=== PATIENT | female | born 1945 | race Caucasian/White ===

== ENCOUNTER 2018-02-09 07:04 | Observation (INO) | payer MEDICARE ==
[~2018-02-09] VITALS: Ht 152.4 cm; Wt 52.3 kg
[2018-02-09] VITALS (10 sets, daily range): BP systolic 104–152; BP diastolic 62–71; PULSE 80–98; RESP 18–20; TEMP 96.1–97.9; O2SAT 92–98
[~2018-02-09 07:04] MED LIST: BACT2OIN TOP
[2018-02-09] MEDS ORDERED: SODIUM CHLORIDE 0.9% FLUSH 10 ML FLUSH IVF PRN (07:15)
[2018-02-09] MEDS ORDERED: methylPREDNISolone SOD SUCC 125 MG/2 ML VIAL IV PUSH ONE (07:15)
[2018-02-09] MEDS ORDERED: PAXI10TA8 PO (07:16)
[2018-02-09] MEDS: RESP: ALBUTEROL 2.5 MG/IPRATROPIUM 0.5 MG NEB (SCH) INH ×6 (07:19→19:22)
[2018-02-09 07:30] LABS: AUTOMATED NEUTROPHIL # 7.7 TH/MM3 (1.8-7.7); BASOPHIL % 0.4 % (0.0-2.0); EOSINOPHIL # 0.2 TH/MM3 (0-0.4); EOSINOPHIL % 1.6 % (0.0-4.0); HEMOGLOBIN 7.9 GM/DL (11.6-15.3); LYMPH % 17.9 % (9.0-44.0); MEAN CELL VOLUME 65.4 FL (80.0-100.0); MEAN CORPUSCULAR HEMOGLOBIN 20.8 PG (27.0-34.0); MEAN CORPUSCULAR HGB CONC 31.8 % (32.0-36.0); MEAN PLATELET VOLUME 8.5 FL (7.0-11.0); MONOCYTE # 1.1 TH/MM3 (0-0.9); NEUT % 70.1 % (16.0-70.0); PLATELET COUNT 455 TH/MM3 (150-450); RED BLOOD COUNT 3.82 MIL/MM3 (4.00-5.30); RED CELL DISTRIBUTION WIDTH 19.1 % (11.6-17.2)
[2018-02-09 07:31] LABS: CHLORIDE 102 MEQ/L (98-107); SODIUM (NA) 134 MEQ/L (136-145)
[2018-02-09 07:33] LABS: CALCIUM 9.1 MG/DL (8.5-10.1)
[2018-02-09 07:34] LABS: BICARBONATE 26.2 MEQ/L (21.0-32.0); BLOOD UREA NITROGEN 10 MG/DL (7-18); GLUCOSE,RANDOM 129 MG/DL (74-106)
[2018-02-09 07:37] LABS: GLOMERULAR FILTRATION RATE 82 ML/MIN (>89)
[2018-02-09 07:42] LABS: TROPONIN I LESS THAN 0.02 NG/ML (0.02-0.05)
--- NOTE | 2018-02-09 08:32 | RADRPT ---
EXAM DATE: 02/09/2018 8:26 AM EDT AGE/SEX: 72 years / Female INDICATIONS: Short of breath. CLINICAL DATA: This is the patient's initial encounter. Patient reports that signs and symptoms have been present for 1 day and indicates a pain score of 6/10. MEDICAL/SURGICAL HISTORY: None. None. COMPARISON: HPO, CHEST PA & LAT, 02/09/2018. POI, CT CHEST W/O CONTRAST, 09/26/2011. POI, XR CHES T PA AND LAT, 09/08/2011. . FINDINGS: The right fifth rib is not well visualized though appears expanded, and the patient does have a histo ry of a lytic expansile lesion of the right posterior fifth rib. Cardiomegaly and aortic calcificatio n. Calcified granuloma left upper lobe. L1 mild wedge compression deformity. Linear scarring at the l eft lung base. There is a pleural-based density at the left lung base extending 8.1 cm in cephalocaud al dimension. CONCLUSION: Left pleural-based density concerning for mass. Expansile lytic lesion right fifth posterior rib which is not well visualized. This has been describe d on previous reports. No obvious consolidation or effusion. Electronically signed by: Hector Boggs MD 02/09/2018 8:31 AM EDT
--- NOTE | 2018-02-09 08:51 | PD ---
HPI . Cough, chest pain, back pain, wound pain Chief Complaint: Chest Pain Time Seen by Provider: 07:12 Travel History International Travel<30 days: No Contact w/Intl Traveler<30days: No Traveled to known affect area: No History of Present Illness HPI Patient presents with the above complaints for the last couple of days. Her cough is productive of yellow sputum. She rates her pain at 10/10. The pain is improved with Advil and a heating pad. Her pain is exacerbated by coughing. She is a recently reformed smoker. She stopped smoking in November. PFSH Past Medical History Hx Anticoagulant Therapy: No Cardiovascular Problems: No Chemotherapy: No Cerebrovascular Accident: No Diabetes: No Diminished Hearing: No Respiratory: No ?: Not Past Surgical History Appendectomy: Yes Hysterectomy: Yes Other Surgery: Yes (BREAST REDUCTION) Social History Alcohol Use: No Tobacco Use: No Substance Use: No Allergies-Medications (Allergen,Severity, Reaction): Coded Allergies: No Known Allergies (Verified Adverse Reaction, Unknown, 02/09/18) Reported Meds & Prescriptions Reported Meds & Active Scripts Active Reported Paxil (Paroxetine HCl) 10 Mg Tab Unknown Dose PO DAILY Review of Systems Except as stated in HPI: all other systems reviewed are Neg General / Constitutional: No: Fever, Chills Cardiovascular: Positive: Chest Pain or Discomfort Respiratory: Positive: Cough, Shortness of Breath Musculoskeletal: Positive: Pain (Back pain) Physical Exam Narrative GENERAL: Awake and alert. SKIN: warm/dry. HEAD: Normocephalic. Atraumatic. EYES: Pupils equal and round. Extraocular movements are intact. ENT: Mucous membranes pink and moist. NECK: Supple. Full range of motion without pain.. CARDIOVASCULAR: Regular rate and rhythm. Heart sounds are normal. RESPIRATORY: No accessory muscle use. Diffuse coarse expiratory rhonchi. Breath sounds equal bilaterally. MUSCULOSKELETAL: No obvious deformities. Normal muscle tone. No peripheral edema. NEUROLOGICAL: Awake and alert. No obvious cranial nerve deficits. Motor grossly within normal limits. Normal speech. PSYCHIATRIC: Appropriate mood and affect; insight and judgment normal. Data Data Last Documented VS Vital Signs Date Time Temp Pulse Resp B/P (MAP) Pulse Ox O2 Delivery O2 Flow Rate FiO2 02/09/18 10:24 95 Nasal Cannula 2.00 02/09/18 09:06 84 02/09/18 08:48 18 02/09/18 07:25 97.9 Orders Orders Complete Blood Count With Diff (02/09/18 07:12) Basic Metabolic Panel (Bmp) (02/09/18 07:12) B-Type Natriuretic Peptide (02/09/18 07:12) Troponin I (02/09/18 07:12) Iv Access Insert/Monitor (02/09/18 07:12) Ecg Monitoring (02/09/18 07:12) Oximetry (02/09/18 07:12) Sodium Chloride 0.9% Flush (Ns Flush) (02/09/18 07:15) Methylprednisolone So Succ Inj (Solumedr (02/09/18 07:15) Albuterol-Ipratropium Neb (Duoneb Neb) (02/09/18 07:15) Chest, Pa & Lat (02/09/18 07:50) Electrocardiogram (02/09/18 07:11) Ct Thorax/ Chest W Iv Contrast (02/09/18 08:51) Albuterol-Ipratropium Neb (Duoneb Neb) (02/09/18 09:00) Potassium Chloride (Kcl) (02/09/18 09:00) Iohexol 350 Inj (Omnipaque 350 Inj) (02/09/18 09:29) Admit Order (Ed Use Only) (02/09/18 ) Vital Signs (Adult) Q4H (02/09/18 10:46) Diet Heart Healthy (02/09/18 Lunch) Activity Oob With Assistance (02/09/18 10:46) Notify Dr: Other (02/09/18 10:46) Labs Laboratory Tests Test 02/09/18 07:15 White Blood Count 11.0 TH/MM3 Red Blood Count 3.82 MIL/MM3 Hemoglobin 7.9 GM/DL Hematocrit 25.0 % Mean Corpuscular Volume 65.4 FL Mean Corpuscular Hemoglobin 20.8 PG Mean Corpuscular Hemoglobin Concent 31.8 % Red Cell Distribution Width 19.1 % Platelet Count 455 TH/MM3 Mean Platelet Volume 8.5 FL Neutrophils (%) (Auto) 70.1 % Lymphocytes (%) (Auto) 17.9 % Monocytes (%) (Auto) 10.0 % Eosinophils (%) (Auto) 1.6 % Basophils (%) (Auto) 0.4 % Neutrophils # (Auto) 7.7 TH/MM3 Lymphocytes # (Auto) 2.0 TH/MM3 Monocytes # (Auto) 1.1 TH/MM3 Eosinophils # (Auto) 0.2 TH/MM3 Basophils # (Auto) 0.0 TH/MM3 CBC Comment AUTO DIFF Differential Comment AUTO DIFF CONFIRMED Blood Urea Nitrogen 10 MG/DL Creatinine 0.70 MG/DL Random Glucose 129 MG/DL Calcium Level 9.1 MG/DL Sodium Level 134 MEQ/L Potassium Level 3.1 MEQ/L Chloride Level 102 MEQ/L Carbon Dioxide Level 26.2 MEQ/L Anion Gap 6 MEQ/L Estimat Glomerular Filtration Rate 82 ML/MIN Troponin I LESS THAN 0.02 NG/ML B-Type Natriuretic Peptide 64 PG/ML MDM Medical Decision Making Medical Screen Exam Complete: Yes Emergency Medical Condition: Yes Medical Record Reviewed: Yes (Unfortunately, she has no previous CBCs in our records.) Interpretation(s) EKG shows a normal sinus rhythm with no acute ischemic changes. Differential Diagnosis Differential diagnosis includes but is not limited to viral respiratory illness , bronchitis, pneumonia, allergies, CHF, asthma/COPD. Narrative Course This patient presented with a chief complaint of cough associated with chest pain, back pain and "lung pain. Onset was a couple days ago. It is associated with yellow sputum. Her physical exam is remarkable for diffuse coarse rhonchi. She was treated in the emergency department with Solu-Medrol and stacked nebs. She states that she feels better. CBC & BMP Diagram 02/09/18 07:15 Calcium Level 9.1 Troponin is normal. Patient reported no known history of anemia. Rectal exam was subsequently done and was Hemoccult negative. Potassium will be replaced orally. Because of her abnormal chest x-ray report, I will go ahead and do a CT of her chest. She will probably be okay to go home after that. She does have a doctor that she can follow-up with in the near future. [facility] Point of Care Internal Pos. & Neg. Controls: Passed Fecal Specimen Occult Blood: Negative Physician Communication Physician Communication Dr. Hinojosa Diagnosis Primary Impression: Bronchitis Additional Impressions: Lung mass Anemia Qualified Codes: D64.9 - Anemia, unspecified Admitting Information Admitting Physician Requests: Observation Condition: Stable Jaylin Gunderson MD Feb 09, 2018 08:51
[2018-02-09] MEDS ORDERED: POTASSIUM CHLORIDE 20 MEQ CONTROLLED RELEASE TAB PO ONE (09:00)
[2018-02-09] MEDS ORDERED: IOHEXOL 350 MG/ML 10 ML VIAL (for RAD DIAG) IVCONTRAST ONE ×2 (09:29→17:26)
--- NOTE | 2018-02-09 09:46 | RADRPT ---
EXAM DATE: 02/09/2018 9:32 AM EDT AGE/SEX: 72 years / Female INDICATIONS: Difficulty breathing. Abnormal chest x-ray. CLINICAL DATA: This is the patient's initial encounter. Patient reports that signs and symptoms have been present for 2 days and indicates a pain score of 0/10. MEDICAL/SURGICAL HISTORY: None. Appendectomy. Hysterectomy. Breast reduction. RADIATION DOSE: 9.91 CTDI (mGy) COMPARISON: HPO, CHEST PA & LAT, 02/09/2018. POI, CT CHEST W/O CONTRAST, 09/26/2011. . TECHNIQUE: Multiple contiguous axial images were obtained through the chest during bolus infusion of 65 ml Omnipaque 350 (iohexol) nonionic water-soluble contrast as a single exam dose. Images were obtained in suspended respiration using multiple row detector helical technique. Using automated exp osure control and adjustment of the mA and/or kV according to patient size, radiation dose was kept a s low as reasonably achievable to obtain optimal diagnostic quality images. FINDINGS: There is a calcified granuloma in the superior segment of the left lower lobe. There are atelectatic changes at the lung bases. There is no consolidation. Atherosclerotic calcifications of the aorta and coronary arteries are identified. Numerous calcified granulomas in the spleen are present. The exami nation demonstrates an expansile destructive appearance of the fifth posterior rib extending over sev eral centimeters. There are also expansile lucent lesions involving the left fifth, sixth and eighth ribs corresponding to the findings on the chest x-ray. There is a fracture of the right 10th posterio r rib with several small lucent lesions seen involving the right 10th posterior rib, as well as a del ent lesion of the right ninth and eighth posterior ribs. There is a lucent lesion of the left fourth and 10th posterior rib. There is a lucent lesion of the sternum and scattered lucent lesions within t he spine. There is a compression deformity identified of the fifth thoracic vertebral body as well as a moderate compression fracture deformity of the T12 vertebral body, which appear pathologic. Tiny c alcified granuloma right upper lobe. CONCLUSION: 1. Calcified granuloma left lower lobe, as well as a tiny calcified granuloma in the right upper lob e. 2. There are numerous lytic lesions seen throughout the visualized bones with a pathologic fracture of the right 10th posterior rib, as well as 2 compression fractures in the spine. These are nonacute in appearance. 3. The pleural-based densities noted on the recent chest x-ray corresponds to expansile rib lesions. Electronically signed by: Hector Boggs MD 02/09/2018 9:45 AM EDT
[2018-02-09] MEDS ORDERED: SODIUM CHLORIDE 0.9% FLUSH 10 ML FLUSH IV FLUSH PRN (10:45)
[2018-02-09] MEDS ORDERED: RESP: ALBUTEROL 2.5 MG/3 ML NEB (PRN) INH (10:45)
[2018-02-09] MEDS ORDERED: ENOXAPARIN SODIUM 40 MG/0.4 ML SYRINGE SQ SCH (12:00)
[2018-02-09] MEDS: AZITHROMYCIN 250 MG TAB PO SCH (12:11)
--- NOTE | 2018-02-09 13:24 | HHI.HP ---
[facility] Service [facility] Primary Care Physician Arlette Núñez MD Admission Diagnosis bronchospasm, anemia, lung mass Diagnoses: (1) Bronchitis Diagnosis: Principal (2) Lung mass Diagnosis: Principal (3) Anemia Diagnosis: Principal Chief Complaint: Shortness of breath, cough Travel History International Travel<30 Days: No Contact w/Intl Traveler <30 Da: No Traveled to Known Affected Are: No History of Present Illness Written by Neptali Kearns, acting as scribe for Dr. Hinojosa on 02/09/18 at 13: 17. 72-year-old female with known significant chronic medical illnesses other than osteoporosis, possible lower extremity neuropathy who presented to the hospital because of cough, congestion. Patient states that her is actually admitted to the hospital and has pneumonia. She has been around him recently who has been sick. She states that she has been experiencing a significant cough with yellow phlegm production and whenever she coughs it feels like a knife stabbing pain in her ribs and back. Denies any fever, chills , nausea, vomiting she has had shortness of breath and dyspnea on exertion. He states that whenever she coughs she does develop a pain in her chest where she puts a pad on it does improve. Patient had workup done emergency department and actually found unfortunate other abnormalities to include multiple lytic lesions throughout her bones thorax, expansile rib lesions, lung mass. ER physician indicated that she gave the patient nebulizer treatments and oxygen and the patient did feel improved, however when she removed the oxygen and her O2 saturations dropped so 89% and because of that reason ER physician recommended patient be admitted to the hospital for further evaluation and management. Upon further questioning of the patient appears that she never had a mammogram, she refuses it because it hurts too bad. Her colonoscopy was done by Dr. Kilo tello 2 years ago and was normal except for polyps. Her prior medical doctor is Dr. Núñez, she denies any previous history of anemia, and she states that she does not know if she has any weight loss. She states that food just does not taste good to her so she sometimes goes without eating frequently. Record reviewed and does appear that patient did have stable weight up until 2013 when it appears as if she started losing weight from 63 kg down to 52 kg. Patient denies any previous diagnosis of cancer. She does have positive family history with her father having cancer of his entire body. She states it started in his groin and then spread throughout his entire body and even into his brain. Review of Systems Constitutional: COMPLAINS OF: Weight loss, Change in appetite Respiratory: COMPLAINS OF: Cough, Sputum production, Shortness of breath Cardiovascular: COMPLAINS OF: Chest pain, Dyspnea on Exertion Musculoskeletal: COMPLAINS OF: Joint pain, Back pain Except as stated in HPI: all other systems reviewed are Neg Past Family Social History Past Medical History Osteoporosis Neuropathy Past Surgical History Appendectomy Hysterectomy Breast reduction Reported Medications Reported Meds & Active Scripts Active Reported Paxil (Paroxetine HCl) 10 Mg Tab Unknown Dose PO DAILY Allergies: Coded Allergies: No Known Allergies (Verified Allergy, Unknown, 02/09/18) Family History Reviewed is significant for father with widespread cancer. Mother at age 51 from alcohol poisoning Social History Patient states that she quit smoking in October prior to that she smoked 1 pack of cigarettes a day since she was a teenager. Denies any alcohol or illicit drug Physical Exam Vital Signs Vital Signs Date Time Temp Pulse Resp B/P (MAP) Pulse Ox O2 Delivery O2 Flow Rate FiO2 02/09/18 11:24 92 18 93 Nasal Cannula 2.00 02/09/18 10:24 95 Nasal Cannula 2.00 02/09/18 09:06 84 96 Nasal Cannula 2.00 02/09/18 08:57 Nasal Cannula 2.00 02/09/18 08:48 95 18 104/62 (76) 93 Room Air 02/09/18 07:25 97.9 80 18 118/71 (87) 94 02/09/18 07:15 18 94 Room Air 02/09/18 07:12 18 94 Room Air Physical Exam GENERAL: Well-developed, well-nourished, in no acute distress. alert and orientated HEENT: Extraocular muscles are intact. NECK: Trachea midline no deviation. No JVD, no bruits are appreciated CARDIAC: Regular rhythm, regular rate. 1-2/6 murmurs gallops . LUNGS: exp Wheeze noted bilateral lower lung bassett. Patient appears to be in obvious pain whenever she coughs ABDOMEN: Soft, nontender. Nondistended. Bowel sounds heard in all 4 quadrants. Negative rebound, negative guarding EXTREMITIES: No edema, pulses are equal bilaterally. NEUROLOGY: Mood and affect appear appropriate. Cranial nerves II through XII grossly intact. moves all ext SPINE: No palpable tenderness noted over thoracic and lumbar spine. Laboratory Laboratory Tests Test 02/09/18 07:15 White Blood Count 11.0 Red Blood Count 3.82 Hemoglobin 7.9 Hematocrit 25.0 Mean Corpuscular Volume 65.4 Mean Corpuscular Hemoglobin 20.8 Mean Corpuscular Hemoglobin Concent 31.8 Red Cell Distribution Width 19.1 Platelet Count 455 Mean Platelet Volume 8.5 Neutrophils (%) (Auto) 70.1 Lymphocytes (%) (Auto) 17.9 Monocytes (%) (Auto) 10.0 Eosinophils (%) (Auto) 1.6 Basophils (%) (Auto) 0.4 Neutrophils # (Auto) 7.7 Lymphocytes # (Auto) 2.0 Monocytes # (Auto) 1.1 Eosinophils # (Auto) 0.2 Basophils # (Auto) 0.0 CBC Comment AUTO DIFF Differential Comment AUTO DIFF CONFIRMED Blood Urea Nitrogen 10 Creatinine 0.70 Random Glucose 129 Calcium Level 9.1 Sodium Level 134 Potassium Level 3.1 Chloride Level 102 Carbon Dioxide Level 26.2 Anion Gap 6 Estimat Glomerular Filtration Rate 82 Troponin I LESS THAN 0.02 B-Type Natriuretic Peptide 64 Result Diagram: 02/09/18 0715 02/09/18 0715 Imaging Last Impressions Chest CT 02/09/18 0851 Signed Impressions: CONCLUSION: 1. Calcified granuloma left lower lobe, as well as a tiny calcified granuloma in the right upper lobe. 2. There are numerous lytic lesions seen throughout the visualized bones with a pathologic fracture of the right 10th posterior rib, as well as 2 compression fractures in the spine. These are nonacute in appearance. 3. The pleural-based densities noted on the recent chest x-ray corresponds to expansile rib lesions. Chest X-Ray 02/09/18 0750 Signed Impressions: CONCLUSION: Left pleural-based density concerning for mass. Expansile lytic lesion right fifth posterior rib which is not well visualized. This has been described on previous reports. No obvious consolidation or effusion. Caprini VTE Risk Assessment Caprini VTE Risk Assessment: Mod/High Risk (score >= 2) Caprini Risk Assessment Model Point Value = 1 Point Value = 2 Point Value = 3 Point Value = 5 Age 41-60 Minor surgery BMI > 25 kg/m2 Swollen legs Varicose veins or History of unexplained or recurrent spontaneous Oral contraceptives or hormone replacement Sepsis (< 1 month) Serious lung disease, including pneumonia (< 1 month) Abnormal pulmonary function Acute myocardial infarction Congestive heart failure (< 1 month) History of inflammatory bowel disease Medical patient at bed rest Age 61-74 Arthroscopic surgery Major open surgery (> 45 min) Laparoscopic surgery (> 45 min) Malignancy Confined to bed (> 72 hours) Immobilizing plaster cast Central venous access Age >= 75 History of VTE Family history of VTE Factor V Leiden Prothrombin [id number] Lupus anticoagulant Anticardiolipin antibodies Elevated serum homocysteine Heparin-induced thrombocytopenia Other congenital or acquired thrombophilia Stroke (< 1 month) Elective arthroplasty Hip, pelvis, or leg fracture Acute spinal cord injury (< 1 month) Prophylaxis Regimen Total Risk Factor Score Risk Level Prophylaxis Regimen 0-1 Low Early ambulation 2 Moderate Order ONE of the following: *Sequential Compression Device (SCD) *Heparin 5000 units SQ BID 3-4 Higher Order ONE of the following medications: *Heparin 5000 units SQ TID *Enoxaparin/Lovenox 40 mg SQ daily (WT < 150 kg, CrCl > 30 mL/min) *Enoxaparin/Lovenox 30 mg SQ daily (WT < 150 kg, CrCl > 10-29 mL/min) *Enoxaparin/Lovenox 30 mg SQ BID (WT < 150 kg, CrCl > 30 mL/min) AND/OR *Sequential Compression Device (SCD) 5 or more Highest Order ONE of the following medications: *Heparin 5000 units SQ TID (Preferred with Epidurals) *Enoxaparin/Lovenox 40 mg SQ daily (WT < 150 kg, CrCl > 30 mL/min) *Enoxaparin/Lovenox 30 mg SQ daily (WT < 150 kg, CrCl > 10-29 mL/min) *Enoxaparin/Lovenox 30 mg SQ BID (WT < 150 kg, CrCl > 30 mL/min) AND *Sequential Compression Device (SCD) Assessment and Plan Assessment and Plan Shortness of breath, wheeze, hypoxia -Given the patient's history of long-term tobacco use possible chronic obstructive pulmonary disease exacerbation, possible bronchitis -Continue O2 supplementation maintain O2 saturations 89-92% -Duo nebs every 6 hours while awake and every 2 hours as needed -Solu-Medrol 60 mg IV every 6 hours -Robitussin-AC for cough and expectorant -Obtain sputum culture Lytic lesions/expansive rib lesions noted on CT chest. Pain meds as needed check bone survey SPEP ordered. Lung/pleural mass, -Need to rule out metastatic disease breast versus multiple myeloma -Obtain CT of the abdomen and pelvis -Obtain tumor markers -Consult oncology for recommendations -obtain CT guided biopsy of lesion Anemia -Obtain anemia studies -Monitor H&H and anticipate transfusion of below 7.0 -Obtain serum protein electrophoresis DVT prevention -Lovenox -Sequential compression devices This note was transcribed by beti Kearns. I, Dr. Janeth Hinojosa personally performed the history, physical exam, and medical decision making; and confirmed the accuracy of the information in the transcribed note. Authenticated by Dr. Janeth Hinojosa on 02/09/18 at 13:17. Code Status Full code Problem Qualifiers (1) Anemia: Qualified Codes: D64.9 - Anemia, unspecified Neptali Kearns Feb 09, 2018 13:24 Janeth Hinojosa MD Feb 09, 2018 13:25
[2018-02-09] MEDS ORDERED: ACETAMINOPHEN/HYDROcodone 325 MG/5 MG TAB PO PRN (13:45)
[2018-02-09] MEDS: methylPREDNISolone SOD SUCC 125 MG/2 ML VIAL IV PUSH SCH ×2 (13:48→21:20)
[2018-02-09] MEDS: guaiFENesin/CODEINE SYRUP 200 MG/20 MG/10 ML CUP PO PRN ×2 (13:48→21:34)
[2018-02-09] MEDS ORDERED: DIATRIZOATE MEGLUM/DIATRIZOATE SOD 9 ML CUP PO ONE ×2 (14:00→14:15)
[2018-02-09 14:20] LABS: RETIC # 119.9 MIL/L (20.0-150.0); RETIC % 3.3 % (0.4-3.0)
[2018-02-09 14:31] LABS: % SATURATION IRON PROFILE 4.4 % (20-50); IRON (FE) 19 MCG/DL (50-170); TOTAL IRON BINDING CAPACITY 434 MCG/DL (250-450)
[2018-02-09] MEDS: ACETAMINOPHEN/HYDROcodone 325 MG/7.5 MG TAB PO PRN ×2 (14:41→21:18)
--- NOTE | 2018-02-09 14:45 | EKG ---
Date Performed: 02/09/2018 Time Performed: 07:11:02 PTAGE: 72 years EKG: Sinus rhythm NONSPECIFIC ST & T-WAVE ABNORMALITY BORDERLINE ECG NO PREVIOUS TRACING DOCTOR: Herman Guadarrama Interpretating Date/Time 02/09/2018 14:44:13
[2018-02-09 14:56] LABS: FERRITIN 15 NG/ML (8-252); FOLATE 11.1 NG/ML (3.1-17.5)
[2018-02-09] MEDS ORDERED: RESP: ALBUTEROL 2.5 MG/IPRATROPIUM 0.5 MG NEB (SCH) INH (16:00)
--- NOTE | 2018-02-09 18:07 | RADRPT ---
EXAM DATE: 02/09/2018 5:25 PM EDT AGE/SEX: 72 years / Female INDICATIONS: Evaluate for metastatic disease. Abnormal CT Thorax. CLINICAL DATA: This is the patient's subsequent encounter. Patient reports that signs and symptoms h ave been present for 1 day and indicates a pain score of 0/10. MEDICAL/SURGICAL HISTORY: None. Appendectomy. Hysterectomy. ORAL CONTRAST: Prescribed oral contrast ingested. RADIATION DOSE: 8.40 CTDI (mGy) COMPARISON: No prior exams available for comparison. TECHNIQUE: Multiple contiguous axial images were obtained through the abdomen and pelvis following b olus infusion of 75 ml Omnipaque 350 (iohexol) nonionic water-soluble contrast as a single exam dos e. Prescribed oral contrast ingested. Using automated exposure control and adjustment of the mA and/ or kV according to patient size, the radiation dose was kept as low as reasonably achievable to obtai n optimal diagnostic quality images. FINDINGS: Lower Lungs: The visualized lower lungs are clear. Liver: The liver has a homogeneous density without space-occupying lesion. There is no dilation of th e biliary tree. There are 2 calcified gallstones in the dependent gallbladder measuring up to 7 mm in size. Spleen: Homogeneous density without enlargement. Multiple round calcifications scattered throughout the spleen. Pancreas: Unremarkable without mass or calcification. Kidneys: Normal in size and shape. No evidence of mass or hydronephrosis. There are 2 oval low-densi ty lesions in the lower pole left kidney measuring up to 7 mm in size suggestive of cortical cysts. Adrenal Glands: Abnormal appearance to the right adrenal gland with 2 masses, one near the crux dianne suring 3.6 x 2.4 cm and the other farther posterior, possibly arising from the medial limb measuring 2.9 x 1.9 cm. These lesions are oval and heterogeneous in density with mean CT density 62 Hounsfield units. Both lesions contain a central rounded calcification. The left adrenal gland is normal in appe arance. Aorta: The aorta and proximal iliac vessels are grossly unremarkable without aneurysmal dilation. Bowel/Mesentery: The bowel loops are grossly unremarkable. The cecum and sigmoid colon have a normal configuration. Abdominal Wall: Intact. Retroperitoneum: No evidence of adenopathy in the retrocrural, para-aortic, or deep pelvic regions. Bladder: Contours are smooth. Reproductive Organs: No abnormal masses or calcifications seen. Inguinal: The inguinal region is unremarkable without evidence of adenopathy. Bony Structures: CT thorax and demonstrated multiple expansile lytic lesions of ribs. There is a fra cture of the posterior right 10th rib. The abdominal pelvic CT demonstrates an expansile lytic lesion involving the inferior pubic ramus on the left side extending to the initial tuberosity, a focal lyt ic lesion in the right posterior femoral head measuring 2.5 cm, multiple small lytic lesions in the s upra-acetabular region bilaterally, focal lytic lesion left medial iliac bone measuring 2.5 cm, ill-d efined lytic lesion in the anterior L4 vertebral body, diffuse sclerosis of the T12 vertebral body wi th 70% compression deformity, irregular margin lytic lesion in the left T11 vertebral body measuring 1.4 cm, and a lytic lesion involving most of the T9 body. CONCLUSION: 1. Numerous lytic lesions without internal matrix involving pelvis, right femoral head, multiple katharine tebral bodies. The osseous lesions seen on this scan are similar to the osseous lesions seen on the C T thorax. 2. There are 2 oval low-density masses in the right adrenal gland measuring up to 3.6 cm. 3. No renal mass seen. 4. Cholelithiasis. Electronically signed by: Dirk Gross MD 02/09/2018 6:06 PM EDT
[2018-02-09] MEDS ORDERED: IRON SUCROSE INJ 100 MG in SODIUM CHLORIDE 0.9% INJ 100 ML IV ONE (18:45)
[2018-02-09] MEDS ORDERED: CYANOCOBALAMIN 1000 MCG/ML VIAL IM ONE (18:45)
--- NOTE | 2018-02-09 19:24 | MB ---
cc: Kerri Mcfarlane MD, Ruby Anne E MD Leger,Janeth KRISHNA DATE: 02/09/2018 REFERRING PHYSICIAN: Dr. Janeth Hinojosa. CHIEF COMPLAINT: Dr. Hinojosa requests a consultation for Mrs. Rosario regarding numerous lytic lesions throughout the bones and pathologic fracture. HISTORY OF PRESENT ILLNESS: Mrs. Rosario is a 72-year-old woman with no significant past history. She describes having a cough and pain in the back associated with her cough. She describes her symptoms began after lifting up her 's truck tail gate. She developed significant pain in her back. She describes that she does not like food. She has lost a significant amount of weight. She weighs about 113 pounds now. She weighed 165 pounds at her most. She describes the weight loss gradual over several years. She describes some pain in her upper back. It radiates to both sides. She denies any pelvic like pain. She has minimized any symptoms. Denies any fevers, chills or night sweats. The rest of her review of systems is negative. PAST MEDICAL HISTORY: None. PAST SURGICAL HISTORY: Appendectomy, hysterectomy, breast reduction surgery. SOCIAL HISTORY: She quit smoking in November. She denies any tobacco or illicit drug use. FAMILY HISTORY: Significant for father who of widespread metastatic cancer including MACHINE BURRER disease. ALLERGIES: NO KNOWN DRUG ALLERGIES. MEDICATIONS: From home Paxil. PHYSICAL EXAMINATION: VITAL SIGNS: Temperature 97.4, heart rate 98, respiratory rate 20, blood pressure 152/69, saturation 96%. GENERAL: Mrs. Rosario is a well-developed, pleasant, elderly woman in no acute distress. HEENT: Pupils are round and reactive. She seems to have a little asymmetry when she blinks. Left eyelid is slower than the right. NECK: Supple. No axillary adenopathy. LUNGS: Clear to auscultation. CARDIOVASCULAR: Reveals mild tachycardia. ABDOMEN: Benign. No organomegaly. LOWER EXTREMITIES: No edema. Good pulses. NEUROLOGIC: Nonfocal. She has a mild kyphotic posture. LABORATORY DATA: Significant for a microcytic anemia with hemoglobin 7.9, MCV 65.4, platelet count 455. Retic count is elevated. Haptoglobin is high. Iron study consistent with iron deficiency with a ferritin of 15. Serum B12 is less than 60. BUN and creatinine are normal. Sodium decreased at 134, potassium 3.1. IMAGING STUDIES: Radiographic evaluation including CT scan of the abdomen showed numerous lytic lesions, internal matrix involving the pelvis, the right femoral head, multiple vertebral bodies. There are 2 masses in the right adrenal gland. CT scan of the chest shows the same numerous lytic lesions throughout the visual bones. There is a pleural based density on the right side in back of the right scapula. ASSESSMENT AND PLAN: Mrs. Rosario is a 72-year-old woman with no significant past history. She has had progressive weight loss, decrease in appetite, evidence of iron and B12 deficiency. We discussed the findings on CT scan of chest, abdomen and pelvis. We suspect underlying malignancy with the lytic lesions and a pleural based mass in the right lung. We discussed a diagnostic biopsy would be important if she is interested in treatment for her cancer. Primary for underlying cancer is still considered lung in light of her history of smoking. Other possibilities are breast and multiple myeloma, in light of the lytic nature of her breast cancer. Consider gastrointestinal source. She has evidence for a B12 deficiency and iron deficiency. She denies any bleeding. We discussed empiric replacement of iron and B12 to alleviate her symptoms. In the end, she declined biopsy. She states that she does not want to know. She believes that whatever lesions are seen on the scans are not bothering her. We discussed real possibility that these lesions would eventually produce symptoms and thus bother her. I recommend highly that if she decides against pursuing a diagnostic biopsy or treatment to consider subscribing to hospice care. She was willing to entertain a consultation with hospice to find out more information. In the meantime, she was advised to consider the option of a CT-guided biopsy for diagnosis along with her son and her . Apparently, her is in the hospital and she does not believe that he is going to get better. Emotional support is provided. We will continue to follow. I will support patient in her decision. She is alert and making decisions for herself. She is expressing her preference. Her questions were answered to her satisfaction. MD YOMI Marcano/ , 06:41 PM , 07:23 PM
--- NOTE | 2018-02-09 21:08 | RADRPT ---
EXAM DATE: 02/09/2018 8:58 PM EDT AGE/SEX: 72 years / Female INDICATIONS: Possible multiple myeloma. CLINICAL DATA: This is the patient's initial encounter. Patient reports that signs and symptoms have been present for 1 week and indicates a pain score of 7/10. MEDICAL/SURGICAL HISTORY: None. None. COMPARISON: No prior exams available for comparison. FINDINGS: Numerous lytic calvarial lesions noted measuring up to 3.2 cm in diameter. Numerous subtle lucencies noted throughout the spine. Moderate wedge pathologic compression fracture at T12 and T5. There is an expansile lytic lesion of the right posterior fifth rib and multiple additional bilateral lytic lesi ons in the ribs. No compression deformity identified in the lumbar spine. There are subtle lytic lesi ons in the pelvis and proximal right femur. These are better visualized on recent CT. Multiple lytic lesions noted in the femora bilaterally with endosteal scalloping. Subtle small lesions noted bilater ally in the tibia and fibula and also in both upper extremities. CONCLUSION: Numerous lytic lesions throughout the axial and appendicular skeleton as well as the calvarium most c haracteristic of multiple myeloma or other metastatic disease. Pathologic compression deformities at T5 and T12. Electronically signed by: Eric Barraza MD 02/09/2018 9:06 PM EDT
[2018-02-09 21:23] LABS: CARCINOEMBRYONIC ANTIGEN 1.5 NG/ML (0.2-5.0)
[2018-02-09 22:03] LABS: CA 19-9 4.7 U/ML (0.0-35.0)
[2018-02-09 22:13] LABS: CA 15-3 20.4 U/ML (0.0-32.4)
[2018-02-09] MEDS: SODIUM CHLORIDE 0.9% FLUSH 10 ML FLUSH IV FLUSH SCH (22:41)
[2018-02-09] MEDS: BUDESONIDE-FORMOTEROL 160/4.5 MCG INHALER INH SCH (22:41)
[2018-02-10] MEDS: methylPREDNISolone SOD SUCC 125 MG/2 ML VIAL IV PUSH SCH ×3 (02:28→14:20)
[2018-02-10] MEDS: ACETAMINOPHEN/HYDROcodone 325 MG/7.5 MG TAB PO PRN ×3 (05:54→16:04)
[2018-02-10 07:00] LABS: AUTOMATED NEUTROPHIL # 9.9 TH/MM3 (1.8-7.7); BASOPHIL % 0.2 % (0.0-2.0); HEMATOCRIT 22.8 % (35.0-46.0); HEMOGLOBIN 7.3 GM/DL (11.6-15.3); LYMPH % 6.7 % (9.0-44.0); LYMPHOCYTE # 0.7 TH/MM3 (1.0-4.8); MEAN CELL VOLUME 65.8 FL (80.0-100.0); MEAN CORPUSCULAR HEMOGLOBIN 21.1 PG (27.0-34.0); MEAN CORPUSCULAR HGB CONC 32.1 % (32.0-36.0); MEAN PLATELET VOLUME 8.1 FL (7.0-11.0); MONO % 1.1 % (0.0-8.0); MONOCYTE # 0.1 TH/MM3 (0-0.9); PLATELET COUNT 322 TH/MM3 (150-450); RED BLOOD COUNT 3.47 MIL/MM3 (4.00-5.30); RED CELL DISTRIBUTION WIDTH 19.4 % (11.6-17.2); WHITE BLOOD COUNT 10.7 TH/MM3 (4.0-11.0)
[2018-02-10 07:24] VITALS: BP 148/64; PULSE 79; RESP 20; TEMP 96.4; O2SAT 94
[2018-02-10] MEDS: RESP: ALBUTEROL 2.5 MG/IPRATROPIUM 0.5 MG NEB (SCH) INH ×2 (07:24→14:21)
[2018-02-10 07:25] VITALS: O2SAT 85
[2018-02-10 07:38] VITALS: O2SAT 94
[2018-02-10 07:46] LABS: CREATININE 0.64 MG/DL (0.50-1.00)
[2018-02-10 07:47] LABS: BICARBONATE 27.6 MEQ/L (21.0-32.0)
[2018-02-10] MEDS: CALCIUM CARBONATE 500 MG CHEWABLE TAB CHEW PRN ×2 (08:05→16:04)
[2018-02-10] MEDS: BUDESONIDE-FORMOTEROL 160/4.5 MCG INHALER INH SCH (08:05)
[2018-02-10] MEDS ORDERED: NEBULIZER1 MI1 (08:24)
[2018-02-10] MEDS ORDERED: PILL SPLITTER OTHER PRN (09:00)
[2018-02-10] MEDS ORDERED: OXYGENDME NAS.CANULA (09:00)
[2018-02-10] MEDS ORDERED: PANTOPRAZOLE SOD 40 MG DELAYED RELEASE TAB PO SCH (09:00)
[2018-02-10] MEDS ORDERED: amLODIPine BESYLATE 5 MG TAB PO SCH (09:00)
--- NOTE | 2018-02-10 09:01 | HHI.DCPOC ---
Discharge Care Plan Diagnosis: (1) Lytic bone lesions on xray (2) COPD (chronic obstructive pulmonary disease) (3) Bronchitis (4) Anemia Goals to Promote Your Health * To prevent worsening of your condition and complications * To maintain your health at the optimal level Directions to Meet Your Goals Take your medications as prescribed Follow your dietary instruction Follow activity as directed Keep your appointments as scheduled Take your immunizations and boosters as scheduled If your symptoms worsen call your PCP, if no PCP go to Urgent Care Center or Emergency Room Smoking is Dangerous to Your Health. Avoid second hand smoke Call the 24-hour hour crisis hotline for domestic abuse at Nept[facility] Kearns Feb 10, 2018 09:01
[2018-02-10] MEDS: SODIUM CHLORIDE 0.9% FLUSH 10 ML FLUSH IV FLUSH SCH (09:41)
[2018-02-10] MEDS: guaiFENesin/CODEINE SYRUP 200 MG/20 MG/10 ML CUP PO PRN (09:44)
[2018-02-10] MEDS: AZITHROMYCIN 250 MG TAB PO SCH (10:24)
[2018-02-10 11:03] VITALS: BP 129/60; PULSE 89; RESP 20; TEMP 96.7; O2SAT 93
--- NOTE | 2018-02-10 12:58 | HHI.PR ---
Subjective Remarks Pt states she feels better regarding her cough and SOB. Feels that she is ready for discharged. When asked about why she didn't want any work up to find out what the lesions on her bones are, she replies that she is a "wimp" and is afraid of needles. I did explain to her that IR would definitely give her anesthesia and she wouldn't feel much during the procedure. She states that she would think about it. She will be meeting w hospice in the event she opts to not do anything. I did also explain to her that in the event she changes her mind, she can f/u w PCP/onc as an outpatient for further eval. She states she is still coughing but has pain in her ribs. Her SOB is improved however. no nausea or vomiting Objective Vitals Vital Signs Date Time Temp Pulse Resp B/P (MAP) Pulse Ox O2 Delivery O2 Flow Rate FiO2 02/10/18 11:03 96.7 89 20 129/60 (83) 93 02/10/18 07:38 94 Nasal Cannula 2.00 02/10/18 07:25 85 21 02/10/18 07:24 96.4 79 20 148/64 (92) 94 02/09/18 23:53 97.3 95 18 149/65 (93) 92 02/09/18 20:00 96.1 86 18 149/69 (95) 94 02/09/18 19:24 98 Nasal Cannula 2.00 02/09/18 16:00 18 02/09/18 15:01 97.4 98 20 152/69 (96) 96 I/O 02/09/18 02/09/18 02/09/18 02/10/18 02/10/18 02/10/18 07:00 15:00 23:00 07:00 15:00 23:00 Intake Total 840 ml 240 ml Balance 840 ml 240 ml Intake Oral 840 ml 240 ml # Voids 2 2 Result Diagram: 02/10/18 0535 02/10/18 0535 Imaging Last Impressions Chest CT 02/09/18 0808 Signed Impressions: CONCLUSION: 1. Calcified granuloma left lower lobe, as well as a tiny calcified granuloma in the right upper lobe. 2. There are numerous lytic lesions seen throughout the visualized bones with a pathologic fracture of the right 10th posterior rib, as well as 2 compression fractures in the spine. These are nonacute in appearance. 3. The pleural-based densities noted on the recent chest x-ray corresponds to expansile rib lesions. Chest X-Ray 02/09/18 0750 Signed Impressions: CONCLUSION: Left pleural-based density concerning for mass. Expansile lytic lesion right fifth posterior rib which is not well visualized. This has been described on previous reports. No obvious consolidation or effusion. Bone Osseous Survey 02/09/18 0000 Signed Impressions: CONCLUSION: Numerous lytic lesions throughout the axial and appendicular skeleton as well a s the calvarium most characteristic of multiple myeloma or other metastatic dis ease. Pathologic compression deformities at T5 and T12. Abdomen/Pelvis CT 02/09/18 0000 Signed Impressions: CONCLUSION: 1. Numerous lytic lesions without internal matrix involving pelvis, right femo ral head, multiple vertebral bodies. The osseous lesions seen on this scan are similar to the osseous lesions seen on the CT thorax. 2. There are 2 oval low-density masses in the right adrenal gland measuring up to 3.6 cm. 3. No renal mass seen. 4. Cholelithiasis. Objective Remarks GENERAL: Well-developed, well-nourished, in no acute distress. alert and orientated CARDIAC: Regular rhythm, regular rate. 1-2/6 murmurs gallops . LUNGS: minimal exp Wheeze noted bilateral lower lung bassett. ABDOMEN: Soft, nontender. Nondistended. Negative rebound, negative guarding EXTREMITIES: No edema, pulses are equal bilaterally. NEUROLOGY: Mood and affect appear appropriate. moves all ext A/P Problem List: (1) Bronchitis ICD Code: J40 - Bronchitis, not specified as acute or chronic Status: Acute (2) Lung mass ICD Code: R91.8 - Other nonspecific abnormal finding of lung field Status: Acute (3) Anemia ICD Code: D64.9 - Anemia, unspecified Status: Acute Assessment and Plan Shortness of breath, wheeze, hypoxia- much improved -Given the patient's history of long-term tobacco use possible chronic obstructive pulmonary disease exacerbation, possible bronchitis -Continue O2 supplementation maintain O2 saturations 89-92% -Received Duo nebs every 6 hours while awake and every 2 hours as needed -On Solu-Medrol 60 mg IV every 6 hours and transition to po prednisone -Robitussin-AC for cough and expectorant -Obtain sputum culture were ordered and not available. Lytic lesions/expansive rib lesions noted on CT chest. Pain meds as needed bone survey concerning for multiple myeloma. SPEP pending Lung/pleural mass, -breast CA versus multiple myeloma vs other -CT of the abdomen and pelvis reviewed -Tumor markers neg thus far -Oncology evaluated the patient however pt refuses work-up and hospice was consulted. After speaking w pt, I found out she is afraid of needles and that was the reason she didn't want the biopsy. I had a conversation w patient regarding reason for biopsy and IR would give her anesthesia. Pt asks to think about it. -CT guided biopsy of lesion scheduled for tomorrow if pt changes her mind Anemia -Obtain anemia studies -Monitor H&H and anticipate transfusion of below 7.0 -serum protein electrophoresis pending DVT prevention -Lovenox d/c due to severe anemia -Sequential compression devices Discharge Planning awaiting hospice recs. if pt changes her mind, will hold discharge until after biopsy. If not, will d/c her w home oxygen and breathing treatment. Problem Qualifiers (1) Anemia: Qualified Codes: D64.9 - Anemia, unspecified Janeth Hinojosa MD Feb 10, 2018 12:58
[2018-02-10 15:01] VITALS: BP 132/64; PULSE 86; RESP 20; TEMP 96.5; O2SAT 93
[2018-02-10] MEDS ORDERED: MEDR4PAK PO (15:34)
[2018-02-10] MEDS ORDERED: AMLO5 PO (15:37)
[2018-02-10] MEDS ORDERED: Albuterol-Ipratropium Neb INH (15:37)
[2018-02-10] MEDS ORDERED: AZIT250T3 PO (15:37)
--- NOTE | 2018-02-10 16:11 | PD.ONC.PN ---
Subjective Subjective Remarks No complaint. Spoke w/ her and son. Opted to go to hospice. Objective Data Date Time Temp Pulse Resp B/P (MAP) Pulse Ox O2 Delivery O2 Flow Rate FiO2 02/10/18 15:01 96.5 86 20 132/64 (86) 93 02/10/18 11:03 96.7 89 20 129/60 (83) 93 02/10/18 07:38 94 Nasal Cannula 2.00 02/10/18 07:25 85 21 02/10/18 07:24 96.4 79 20 148/64 (92) 94 02/09/18 23:53 97.3 95 18 149/65 (93) 92 02/09/18 20:00 96.1 86 18 149/69 (95) 94 02/09/18 19:24 98 Nasal Cannula 2.00 02/10/18 02/10/18 02/10/18 07:00 15:00 23:00 Intake Total 240 ml Balance 240 ml Result Diagram: 02/10/18 0535 02/10/18 0535 Laboratory Results Laboratory Tests Test 02/10/18 05:35 White Blood Count 10.7 TH/MM3 Red Blood Count 3.47 MIL/MM3 Hemoglobin 7.3 GM/DL Hematocrit 22.8 % Mean Corpuscular Volume 65.8 FL Mean Corpuscular Hemoglobin 21.1 PG Mean Corpuscular Hemoglobin Concent 32.1 % Red Cell Distribution Width 19.4 % Platelet Count 322 TH/MM3 Mean Platelet Volume 8.1 FL Neutrophils (%) (Auto) 92.0 % Lymphocytes (%) (Auto) 6.7 % Monocytes (%) (Auto) 1.1 % Eosinophils (%) (Auto) 0.0 % Basophils (%) (Auto) 0.2 % Neutrophils # (Auto) 9.9 TH/MM3 Lymphocytes # (Auto) 0.7 TH/MM3 Monocytes # (Auto) 0.1 TH/MM3 Eosinophils # (Auto) 0.0 TH/MM3 Basophils # (Auto) 0.0 TH/MM3 CBC Comment AUTO DIFF Differential Comment AUTO DIFF CONFIRMED Blood Urea Nitrogen 13 MG/DL Creatinine 0.64 MG/DL Random Glucose 162 MG/DL Calcium Level 9.0 MG/DL Sodium Level 136 MEQ/L Potassium Level 3.5 MEQ/L Chloride Level 102 MEQ/L Carbon Dioxide Level 27.6 MEQ/L Anion Gap 6 MEQ/L Estimat Glomerular Filtration Rate 91 ML/MIN 25-Hydroxy Vitamin D Total 19.6 ng/ML Administered Medications Medications (Trade) Dose Ordered Sig/Jordan Route PRN Reason Start Time Stop Time Status Last Admin Dose Admin Sodium Chloride (NS Flush) 2 ml BID IV FLUSH 02/09/18 21:00 02/10/18 09:41 Budesonide/ Formoterol Fumarate (Symbicort 160-4.5 Mcg Inh) 2 puff Q12HR INH 02/09/18 21:00 02/10/18 08:05 Methylprednisolone Sodium Succinate (SoluMEDROL INJ) 60 mg Q6H IV PUSH 02/09/18 14:00 02/10/18 14:20 Azithromycin (Zithromax) 500 mg Q24H PO 02/09/18 11:00 02/12/18 10:59 02/10/18 10:24 Guaifenesin/ Codeine Phosphate (Robitussin Ac 200-20 Mg/10 ml Liq) 10 ml Q4H PRN PO COUGH 02/09/18 13:00 02/10/18 09:44 Albuterol/ Ipratropium (Duoneb Neb) 1 ampule Q6HR WHILE AWAKE NEB INH 02/09/18 14:00 02/10/18 14:21 Acetaminophen/ Hydrocodone Bitart ([place] 7.5-325 Mg) 1 tab Q4H PRN PO PAIN SCALE 7 TO 10 02/09/18 13:45 02/10/18 16:04 Pantoprazole Sodium (Protonix) 40 mg DAILY PO 02/10/18 09:00 02/10/18 08:06 Calcium Carbonate (Tums Chew) 500 mg Q6HR PRN CHEW INDIGESTION 02/10/18 08:00 02/10/18 16:04 Amlodipine Besylate (Norvasc) 2.5 mg DAILY PO 02/10/18 09:00 02/10/18 09:40 Objective Remarks GENERAL: Well-nourished, elderly, well-developed patient. SKIN: Warm and dry. HEAD: Normocephalic. EYES: No scleral icterus. No injection or drainage. NECK: Supple, trachea midline. No JVD or lymphadenopathy. LYMPHATIC: No adenopathy. CARDIOVASCULAR: Regular rate and rhythm without murmurs. RESPIRATORY: Breath sounds equal bilaterally. No accessory muscle use. GASTROINTESTINAL: Abdomen soft, non-tender, nondistended. EXTREMITIES: No cyanosis, or edema. MUSCULOSKELETAL: Adequate muscle tone. Assessment/Plan Problem List: (1) Lung mass ICD Codes: R91.8 - Other nonspecific abnormal finding of lung field Status: Acute Plan: Suspected metastatic cancer vs. advance plasma cell disorder. Pt decline work up and is comfortable with her decision. Seen by hospice who also gave her option to proceed with diagnostic biopsy. Discussed w/ primary team. Would support patient in her decision. Assessment 72 y/o woman with undiagnosed malignancy, likely advanced or metastatic. Decline biopsy and opting to proceed with hospice care. Plan 1. Admit to hospice. Kerri Mcfarlane MD Feb 10, 2018 16:11
[2018-02-11 21:49] LABS: ALB/GLOB RATIO (SPE) 0.38 (1.39-2.23)
== END 2018-02-10 17:42 | disposition home or self-care (01) ==
LOC: PHED 07:04 → PHEDA 10:59 → PH3A 11:30
PROVIDERS: ADMIT Hospitalist; ATTEND Hospitalist
DX: R06.02 Shortness of breath (principal); R06.2 Wheezing; R09.02 Hypoxemia; R05 Cough; R91.8 Other nonspecific abnormal finding of lung field; D64.9 Anemia, unspecified; J44.9 Chronic obstructive pulmonary disease, unspecified; E61.1 Iron deficiency; E53.8 Deficiency of other specified B group vitamins; J84.10 Pulmonary fibrosis, unspecified; K80.20 Calculus of gallbladder without cholecystitis without obstruction; R07.89 Other chest pain; M54.9 Dorsalgia, unspecified; M25.50 Pain in unspecified joint; G62.9 Polyneuropathy, unspecified; M84.48XA Pathological fracture, other site, initial encounter for fracture; M48.50XA Collapsed vertebra, not elsewhere classified, site unspecified, initial encounter for fracture; M81.0 Age-related osteoporosis without current pathological fracture; Z87.891 Personal history of nicotine dependence; Z79.899 Other long term (current) drug therapy
CPT/HCPCS: 71046; 71260; 74177; 77075; 80048; 82105; 82306; 82378; 82607; 82728; 82746; 83010; 83540; 83550; 83615; 83880; 84165; 84484; 85025; 85044; 86300; 86301; 86304; 93005; 94150; 94618; 94640; 94664; 96365; 96366; 96372; 96375; 96376; 99285; G0378; J1650; J1756; J2930; J3420; Q9963; Q9967